=== PATIENT | female | born 1950 | race Caucasian/White ===

== ENCOUNTER 2016-09-01 12:14 | Emergency (ER) | payer MEDICARE ==
[~2016-09-01] VITALS: Ht 157.5 cm; Wt 86.2 kg
--- NOTE | 2016-09-01 12:51 | PHYS DOC ---
Past History Past Medical History: Cancer, Hypertension Past Surgical History: Hysterectomy Alcohol Use: Occasionally Drug Use: None Adult General Chief Complaint Chief Complaint: HYPERTENSION HPI HPI This is a 66-year-old female who status post dental extraction just prior to arrival. Per a note provided by patient, patient was receiving a dental extraction and had an elevated blood pressure 180/100 felt lightheaded as well. An IV was given and multiple medications including labetalol and a fluid bolus. Attempts to have the patient follow-up with her brothers primary care physician were made but were unable to be established and so she was sent here for further evaluation for uncontrolled blood pressure. Upon my initial assessment, patient has no complaints. She denies any dizziness or lightheadedness. She denies any chest pain or shortness breath. She states she should be taking medications for her blood pressure but states she has significant side effects with Norvasc which makes her weak and so she does not take any medications. She denies any other significant health problems. She is fully alert and oriented and nontoxic on my initial impression. Review of Systems Review of Systems Constitutional: Denies fever or chills [] Eyes: Denies change in visual acuity, redness, or eye pain [] HENT: Denies nasal congestion or sore throat [] Respiratory: Denies cough or shortness of breath [] Cardiovascular: No additional information not addressed in HPI [] GI: Denies abdominal pain, nausea, vomiting, bloody stools or diarrhea [] : Denies dysuria or hematuria [] Musculoskeletal: Denies back pain or joint pain [] Integument: Denies rash or skin lesions [] Neurologic: Denies headache, focal weakness or sensory changes [] Endocrine: Denies polyuria or polydipsia [] Current Medications Current Medications Current Medications Medications (Trade) Dose Ordered Sig/Jodi Start Time Stop Time Status Last Admin Dose Admin Hydralazine HCl (Apresoline) 10 mg 1X ONCE 09/01/16 12:45 09/01/16 12:46 UNV Allergies Allergies Allergies Coded Allergies Type Severity Reaction Last Updated Verified Penicillins Allergy Intermediate rash 09/01/16 Yes iodine Allergy Intermediate rash 09/01/16 Yes Physical Exam Physical Exam Constitutional: Well developed, well nourished, no acute distress, non-toxic appearance. [] HENT: Normocephalic, atraumatic, bilateral external ears normal, oropharynx moist, no oral exudates, nose normal. [] Eyes: PERRLA, EOMI, conjunctiva normal, no discharge. [] Neck: Normal range of motion, no tenderness, supple, no stridor. [] Cardiovascular:Heart rate regular rhythm, no murmur [] Lungs & Thorax: Bilateral breath sounds clear to auscultation [] Abdomen: Bowel sounds normal, soft, no tenderness, no masses, no pulsatile masses. [] Skin: Warm, dry, no erythema, no rash. [] Back: No tenderness, no CVA tenderness. [] Extremities: No tenderness, no cyanosis, no clubbing, ROM intact, no edema. [] Neurologic: Alert and oriented X 3, normal motor function, normal sensory function, no focal deficits noted. [] Psychologic: Affect normal, judgement normal, mood normal. [] Current Patient Data Vital Signs Vital Signs Date Time Temp Pulse Resp B/P Pulse Ox O2 Delivery O2 Flow Rate FiO2 09/01/16 12:14 97.5 57 20 97 Room Air EKG EKG EKG as interpreted by me shows a sinus rhythm with rate of 55 bpm. There is a leftward axis. There are no obvious ischemic findings. This EKG does not meet STEMI criteria. QTc interval is 400 ms Radiology/Procedures Radiology/Procedures [] Course & Med Decision Making Course & Med Decision Making Pertinent Labs and Imaging studies reviewed. (See chart for details) This 66-year-old female who has uncontrolled hypertension will have laboratory workup including an EKG and routine lab work to check her kidney function as well as her cardiac function. Her blood pressure is elevated upon arrival at 220 /120. She is asymptomatic with this blood pressure. If her laboratory workup and EKG are unremarkable and she remains asymptomatic, she'll be discharged with a low dose of hydrochlorothiazide to follow closely with Dr. Kaur to have her blood pressure reevaluated. A dose of IV hydralazine will also be given. My reassessment, the patient's blood pressure was much improved at 165/80. The patient states she feels very comfortable. Her lab work including a set of cardiac enzymes, EKG and urinalysis were unremarkable. Patient is written for 12.5 mg of hydralazine daily for 10 days and she will follow-up with Dr. Kaur in the next several days to have her blood pressure rechecked and have her medication adjusted if needed. The oral surgeon, Dr. Hughes, was updated on her status. Dragon Disclaimer Dragon Disclaimer This chart was dictated in whole or in part using Voice Recognition software in a busy, high-work load, and often noisy Emergency Department environment. It may contain unintended and wholly unrecognized errors or omissions. Departure Departure: Impression: Primary Impression: Hypertension Disposition: HOME, SELF-CARE Condition: STABLE Patient Instructions: Hypertension, Lena-hr-Vult Additional Instructions: Please follow-up with Dr. Kaur in the next 2-3 days to have your blood pressure reevaluated. Take your blood pressure medication as prescribed and return to the ER if you develop any headache, chest pain, shortness of breath, or any lightheadedness or dizziness. Scripts Hydrochlorothiazide (Hydrochlorothiazide Tablet)12.5 Mg Fragcv92.5 Mg PO DAILY DIURETIC #10 TAB Ref 0 Prov:LYRIC GUTIERREZ DO 09/01/16 LYRIC GUTIERREZ DO Sep 01, 2016 12:51
--- NOTE | 2016-09-01 13:05 | EKG ---
[address] [address] Test Date: 2016-09-01 Test Time: 13:02:03 Pat Name: CATA VALDES Department: Room: Gender: F Audio Visual Specialist: : [id number] Requested By: LYRIC GUTIERREZ Order Number: [id number] Reading MD: Tariq Vergara Measurements Intervals [place] Rate: 55 P: 28 DE: 186 QRS: -20 QRSD: 84 T: 55 QT: 416 QTc: 400 Interpretive Statements SINUS RHYTHM LEFTWARD AXIS CONSIDER LEFT VENTRICULAR HYPERTROPHY QRS(T) CONTOUR ABNORMALITY CONSISTENT WITH INFERIOR INFARCT PROBABLY OLD Electronically Signed On 09-05-2016 9:37:48 CDT by Tariq Vergara
[2016-09-01 13:12] LABS: BACTERIA,URINE 0 /HPF (0-FEW); BILIRUBIN,URINE NEG (NEG); CLARITY,URINE CLEAR; COLOR,URINE YELLOW; GLUCOSE,URINE NEG (NEG); NITRITE,URINE NEG (NEG); SQUAMOUS EPITHELIAL CELL,UR OCC /LPF; UROBILINOGEN,URINE 0.2 mg/dL (0.2 mg/dL); WBC,URINE OCC /HPF (0-4)
[2016-09-01] MEDS ORDERED: hydrALAZINE 20 MG/ML VIAL. IV ONE (13:15)
[2016-09-01 13:17] LABS: BASO % 1 % (0-3); EOS % 0 % (0-3); HEMATOCRIT 43.2 % (36.0-47.0); HEMOGLOBIN 14.4 g/dL (12.0-15.5); LYMPH # 0.4 x10^3/uL (1.0-4.8); LYMPH % 5 % (24-48); MEAN CORPUSCULAR HEMOGLOBIN 30 pg (25-35); MEAN CORPUSCULAR HGB CONC 33 g/dL (31-37); MEAN CORPUSCULAR VOLUME 89 fL (79-100); MONO # 0.2 x10^3/uL (0.0-1.1); MONO % 3 % (0-9); NEUT # 6.8 x10^3uL (1.8-7.7); NEUT % 91 % (31-73); PLATELET COUNT 216 x10^3/uL (140-400); RED BLOOD COUNT 4.87 x10^6/uL (3.50-5.40); RED CELL DISTRIBUTION WIDTH 13.8 % (11.5-14.5); WHITE BLOOD COUNT 7.5 x10^3/uL (4.0-11.0)
[2016-09-01 13:26] LABS: CALCIUM 9.3 mg/dL (8.5-10.1); CREATININE 1.4 mg/dL (0.6-1.0); GFR 37.5; POTASSIUM 3.9 mmol/L (3.5-5.1)
[2016-09-01] MEDS ORDERED: HYDR12.58 PO (13:34)
[2016-09-01 14:06] VITALS: BP 164/88
== END 2016-09-01 14:00 | disposition home or self-care (01) ==
LOC: ER 12:14
DX: I10 Essential (primary) hypertension (principal); Z98.818 Other dental procedure status; Z88.0 Allergy status to penicillin; Z91.041 Radiographic dye allergy status
CPT/HCPCS: 36415; 80048; 81001; 84484; 85027; 93005; 96374; 99285; J0360